=== PATIENT | male | born 1985 | race Caucasian/White ===

== ENCOUNTER 2017-11-29 20:19 | Inpatient (IN) | payer SELFPAY ==
[~2017-11-29] VITALS: Ht 175.3 cm; Wt 72.7 kg
[2017-11-29 22:03] LABS: BASO # 0.1 (0.0-0.2); BASO % 0.3 % (0.0-2.0); EOS % 0.1 % (0-4.0); GRAN # 13.5 (1.4-6.5); GRAN % 81.1 % (42.2-75.2); HEMATOCRIT 36.6 % (42.0-52.0); LYMPH # 2.2 (1.2-3.4); LYMPH % 13.1 % (20.0-51.0); MEAN CELL VOLUME 99 fl (80.0-100.0); MEAN CORPUSCULAR HEMOGLOBIN 32 pg (27.0-31.0); MEAN CORPUSCULAR HGB CONC 33 g/dl (33.0-37.0); MEAN PLATELET VOLUME 10.9 fl (7.4-10.4); MONO # 0.8 (0.1-0.6); PLATELET COUNT 197 K/mm3 (130-400)
[2017-11-29 22:07] LABS: ALBUMIN 3.8 gm/dL (3.5-5.0); BILIRUBIN,TOTAL 0.2 mg/dL (0.0-1.0); CALCIUM 8.3 mg/dL (8.4-10.2); CREATININE, serum 0.9 mg/dL (0.66-1.25); POTASSIUM 3.4 mmol/L (3.4-5.0); TOTAL PROTEIN 6.3 gm/dL (6.4-8.2)
[2017-11-30] VITALS (11 sets, daily range): BP systolic 108–155; BP diastolic 58–78; PULSE 72–107; TEMP 98.1–98.8
[2017-11-30] MEDS ORDERED: ASPI325T6 PO (00:27)
[2017-11-30] MEDS ORDERED: ROXICODONE 55 MG/TAB PO (00:28)
[2017-11-30] MEDS ORDERED: COLACE 100100 MG/CAP PO (00:28)
[2017-11-30 07:33] LABS: BASO % 0.1 % (0.0-2.0); GRAN # 10.4 (1.4-6.5); GRAN % 86.5 % (42.2-75.2); HEMOGLOBIN 10.9 g/dl (13.5-18.0); LYMPH # 0.7 (1.2-3.4); LYMPH % 5.4 % (20.0-51.0); MEAN CELL VOLUME 99 fl (80.0-100.0); MEAN CORPUSCULAR HEMOGLOBIN 33 pg (27.0-31.0); MEAN CORPUSCULAR HGB CONC 33 g/dl (33.0-37.0); MEAN PLATELET VOLUME 10.7 fl (7.4-10.4); MONO # 0.9 (0.1-0.6); MONO % 7.5 % (1.7-9.3); PLATELET COUNT 176 K/mm3 (130-400); RED BLOOD COUNT 3.35 M/mm3 (4.20-5.60); REDCELL DISTRIBUTION WIDTH-CV 12.2 % (11.5-14.5)
[2017-11-30 07:37] LABS: HEMATOCRIT 33.2 % (42.0-52.0)
== END 2017-11-30 18:44 | disposition home or self-care (01) | DRG 494 ==
LOC: COL.ER 20:19 → SURG 22:27
PROVIDERS: Emergency Medicine; Orthopaedic Surgery Sports Medicine
PROC: 0QSG04Z Reposition Right Tibia with Internal Fixation Device, Open Approach (ICD-10-PCS; principal; 2017-11-29 22:30)
DX: S82.301B Unspecified fracture of lower end of right tibia, initial encounter for open fracture type I or II (principal); T22.011A Burn of unspecified degree of right forearm, initial encounter; S41.021A Laceration with foreign body of right shoulder, initial encounter; R40.2412 Glasgow coma scale score 13-15, at arrival to emergency department; Z23 Encounter for immunization; W39.XXXA Discharge of firework, initial encounter; Y92.017 Garden or yard in single-family (private) house as the place of occurrence of the external cause
CPT/HCPCS: C1713; J0690; J1100; J1170; J1885; J2175; J2405; J2704; J3010; J7030; J7120